=== PATIENT | male | born 1955 | race Caucasian/White ===

== ENCOUNTER 2017-05-20 10:24 | Day surgery (SDC) | payer BC ==
[~2017-05-20 10:24] MED LIST: DIPATR PO; GENT.3OPSA OD; IBUP800; ONDA4ODT; OXYACE5T PO; OXYC5
[2018-02-08] MEDS ORDERED: LOPE2C PO (13:28)
== END 2017-05-20 22:59 | disposition home or self-care (01) ==
LOC: CT 10:24
PROC: 0W9G30Z Drainage of Peritoneal Cavity with Drainage Device, Percutaneous Approach (ICD-10-PCS; principal; 2017-05-20)
DX: C20 Malignant neoplasm of rectum (principal)
CPT/HCPCS: 49406; 72192; 88108

== ENCOUNTER 2017-05-20 10:24 | Day surgery (SDC) | payer SELFPAY ==
[2018-02-08] MEDS ORDERED: LOPE2C PO (13:28)
== END 2017-05-26 22:38 | disposition home or self-care (01) ==
LOC: CT 10:24
PROC: BW2GYZZ Computerized Tomography (CT Scan) of Pelvic Region using Other Contrast (ICD-10-PCS; principal; 2017-05-20)
DX: C20 Malignant neoplasm of rectum (principal)
CPT/HCPCS: 72192

== ENCOUNTER → 2018-03-29 | Outpatient (CLI) | payer OTHER ==
[~2018-03-29] MED LIST changes: +LOPE2C PO
== END | disposition home or self-care (01) ==
LOC: LAB SHORT 17:00 → LAB 17:00 → LAB FUT 03-24 16:50 → EDSTATUS 03-24 16:50
DX: C20 Malignant neoplasm of rectum (principal); Z93.2 Ileostomy status
CPT/HCPCS: 87493

== ENCOUNTER 2018-08-01 08:03 | Day surgery (SDC) | payer OTHER ==
[~2018-08-01] VITALS: Wt 85.7 kg
--- NOTE | 2018-08-01 08:30 | NUR ---
INTO SDS ADMISSION TO UNIT STARTED.
--- NOTE | 2018-08-01 08:56 | NUR ---
08/01/18 0856 Vivienne Olvera History, Chart, Medications and Allergies reviewed before start of procedure. Patient confirms NPO status and agrees with scheduled surgery. PATIENT DETERMINED TO BE ASA APPROPRIATE FOR PROPOFOL SEDATION PRIOR TO START OF PROCEDURE BY DR. SAEZ. 3-LEAD EKG REVIEWED WITH PHYSICIAN PRIOR TO START OF PROCEDURE. MONITOR INTACT WITH CONTINUOUS PULSE OXIMETRY AND INTERMITTENT BP.
--- NOTE | 2018-08-01 10:22 | NUR ---
Discharge instructions reviewed with patient. Patient verbalizes understanding. Copy given to patient to take home. Discharged via wheelchair to private car for ride home.
== END 2018-08-01 10:22 | disposition home or self-care (01) ==
LOC: ORSCMMR 08:03 → ORD 09:00 → ORSCMMR 09:00
PROVIDERS: Internal Medicine Gastroenterology
PROC: 0DBE8ZX Excision of Large Intestine, Via Natural or Artificial Opening Endoscopic, Diagnostic (ICD-10-PCS; principal; 2018-08-01 09:00)
PROC: 3E0H8GC Introduction of Other Therapeutic Substance into Lower GI, Via Natural or Artificial Opening Endoscopic (ICD-10-PCS; principal; 2018-08-01 09:00)
PROC: 0D7E8ZZ Dilation of Large Intestine, Via Natural or Artificial Opening Endoscopic (ICD-10-PCS; principal; 2018-08-01 09:00)
DX: R19.7 Diarrhea, unspecified (principal); Z85.048 Personal history of other malignant neoplasm of rectum, rectosigmoid junction, and anus; K56.699 Other intestinal obstruction unspecified as to partial versus complete obstruction; F17.210 Nicotine dependence, cigarettes, uncomplicated; Z79.899 Other long term (current) drug therapy
CPT/HCPCS: 88305; C1726; J2250; J2704; J3301; J7120

== ENCOUNTER → 2019-02-28 | Outpatient (CLI) | payer OTHER | END | disposition home or self-care (01) | LOC: LAB 11:58 → LAB SHORT 11:58 → LAB FUT 02-29 17:55 → EDSTATUS 02-29 17:55 | DX: C20 Malignant neoplasm of rectum (principal) | CPT/HCPCS: 87493 ==

== ENCOUNTER 2019-05-09 07:59 | Day surgery (SDC) | payer OTHER ==
[~2019-05-09] VITALS: Ht 185.4 cm; Wt 93.6 kg
--- NOTE | 2019-05-09 08:48 | NUR ---
Ambulatory in Day Surgery. Patient states colon prep results clear. History, Chart, Medications and Allergies reviewed before start of procedure. Lungs clear T/O to Auscultation. Patient confirms NPO status and agrees with scheduled surgery. Pre-Op teaching done. Pt verbalizes understanding. Patient States Post-Procedure ride home has been arranged.
--- NOTE | 2019-05-09 10:26 | NUR ---
05/09/19 1026 BHAVANA RALPH History, Chart, Medications and Allergies reviewed before start of procedure.MONITOR INTACT WITH CONTINUOUS PULSE OXIMETRY AND INTERMITTENT BP.3-LEAD EKG REVIEWED WITH PHYSICIAN PRIOR TO START OF PROCEDURE.O2 VIA N/C INTACT THROUGHOUT SEDATION/PROCEDURE. PATIENT DETERMINED TO BE ASA APPROPRIATE FOR PROPOFOL SEDATION PRIOR TO START OF PROCEDURE BY DR. SAEZ.
--- NOTE | 2019-05-09 11:26 | NUR ---
Patient up to Ambulate independently. Gait steady. Discharge instructions reviewed with patient. Patient verbalizes understanding. Copy given to patient to take home. Patient States Post-Procedure ride home has been arranged. Discharged via wheelchair to private car for ride home.
== END 2019-05-09 22:53 | disposition home or self-care (01) ==
LOC: ORSCMMR 07:59 → ORD 09:00 → ORSCMMR 22:53
PROVIDERS: Internal Medicine Gastroenterology
PROC: 3E0H8GC Introduction of Other Therapeutic Substance into Lower GI, Via Natural or Artificial Opening Endoscopic (ICD-10-PCS; principal; 2019-05-09 09:00)
PROC: 0D7N8ZZ Dilation of Sigmoid Colon, Via Natural or Artificial Opening Endoscopic (ICD-10-PCS; principal; 2019-05-09 09:00)
PROC: 0DBP8ZX Excision of Rectum, Via Natural or Artificial Opening Endoscopic, Diagnostic (ICD-10-PCS; principal; 2019-05-09 09:00)
DX: R19.5 Other fecal abnormalities (principal); K62.4 Stenosis of anus and rectum; Z85.048 Personal history of other malignant neoplasm of rectum, rectosigmoid junction, and anus; F17.210 Nicotine dependence, cigarettes, uncomplicated
CPT/HCPCS: 88305; C1726; J2250; J2704; J3301; J7120

== ENCOUNTER 2020-01-07 18:52 | Inpatient (IN) | payer OTHER ==
[~2020-01-07] VITALS: Ht 185.4 cm; Wt 86.5 kg
[~2020-01-07 18:52] MED LIST changes: -AMOCLA500 PO; -HYDMOR2 PO
[2020-01-07] MEDS ORDERED: LOPE2C PO (19:06)
[2020-01-07 19:56] LABS: BASOPHILS ABSOLUTE AUTO 0.07 K/mm3 (0.00-0.23); BASOPHILS PERCENT AUTO 1 % (0-2); EOSINOPHILS ABSOLUTE AUTO 0.08 K/mm3 (0.00-0.68); EOSINOPHILS PERCENT AUTO 1 % (0-6); Hematocrit 47.2 % (37.0-53.0); Hemoglobin 15.6 g/dL (13.5-17.5); IMMATURE GRAN ABSOLUTE AUTO 0.12 K/mm3 (0.00-0.10); IMMATURE GRAN PERCENT AUTO 1 % (0-1); LYMPHOCYTES ABSOLUTE AUTO 1.41 K/mm3 (0.84-5.20); LYMPHOCYTES PERCENT AUTO 11 % (21-46); MONOCYTES ABSOLUTE AUTO 1.17 K/mm3 (0.16-1.47); MONOCYTES PERCENT AUTO 9 % (4-13); Mean Corpuscular HGB Conc 33.1 g/dL (31.5-36.5); Mean Corpuscular Volume 91 fL (80-100); Mean Platelet Volume 9.8 fL (9.1-12.4); NEUTROPHILS ABSOLUTE AUTO 10.42 K/mm3 (1.96-9.15); NEUTROPHILS PERCENT AUTO 79 % (41-73); Platelet Count 338 K/mm3 (150-400); RDW Coefficient Variation 13.4 % (11.7-14.2); RDW Standard Deviation 45.7 fL (35.1-46.3); White Blood Cell Count 13.27 K/mm3 (4.00-11.30)
[2020-01-07 22:42] LABS: Alanine Aminotransfer (ALT/SGP 18 U/L (12-78); Albumin/Globulin Ratio 0.7 (0.8-1.8); Alk Phos 90 U/L (50-136); Anion Gap 9 mmol/L (6-16); Aspartate Aminotrans (AST/SGOT 10 U/L (12-37); Bilirubin, Total 0.4 mg/dL (0.1-1.0); Blood Urea Nitrogen 8 mg/dL (8-24); Bun/Creatinine Ratio 10.3 (12.0-20.0); CO2, Blood 27 mmol/L (21-32); Calcium, Blood 8.8 mg/dL (8.5-10.1); Chloride, Blood 101 mmol/L (98-108); Creatinine, Blood 0.78 mg/dL (0.60-1.20); Globulin, Blood 4.6 g/dL (2.2-4.0); Glomerular Filtration Rate >60 (60-); Glucose, Blood 89 mg/dL (70-99); Potassium, Blood 3.1 mmol/L (3.5-5.5); Sodium, Blood 137 mmol/L (136-145); Total Protein, Blood 7.6 g/dL (6.4-8.2)
[2020-01-07 23:20] LABS: Source, Urine Voided
[2020-01-07 23:24] LABS: Bilirubin, Urine Neg (Neg); Blood, Urine Neg (Neg); Glucose Qualitative, Urine Neg (Neg); Ketones, Urine Neg (Neg); Leukocyte Esterase, Urine Neg (Neg); Nitrite, Urine Neg (Neg); Protein, Urine Neg (Neg); Specific Gravity, Urine 1.005 (1.003-1.022); Urobilinogen, Urine NORM (Normal)
[2020-01-07 23:25] LABS: Appearance, Urine Clear (Clear); Color, Urine Yellow (P-Yellow)
--- NOTE | 2020-01-08 01:30 | NUR ---
0115 PT ADMITTED TO ROOM 356 PER CART FROM ER; PT MOVED PER SELF FROM CART TO BED; ALERT AND ORIENTED X 4; PTS SISTER JORDI AT SIDE AND TOOK ALL PERSONAL BELONGINGS HOME.
--- NOTE | 2020-01-08 04:29 | NUR ---
SHIFT SUMMARY: 64 Y/O MALE RESTED COMFORTABLY ALL SHIFT; C/O RECTAL PAIN RATED 7/10 WITH FENTANYL 50MCG IVP X 1 GIVEN WITH ADEQUATE RELIEF FELT; HAPPY AND COOPERATIVE; NPO FOR SURGICAL CONSULT TODAY; ALERT AND ORIENTED X 4; BED LOW POSITION WITH CALL LIGHT AT SIDE.
[2020-01-08 07:55] LABS: BASOPHILS ABSOLUTE AUTO 0.07 K/mm3 (0.00-0.23); BASOPHILS PERCENT AUTO 1 % (0-2); EOSINOPHILS ABSOLUTE AUTO 0.15 K/mm3 (0.00-0.68); EOSINOPHILS PERCENT AUTO 2 % (0-6); Hematocrit 42.7 % (37.0-53.0); Hemoglobin 13.9 g/dL (13.5-17.5); IMMATURE GRAN ABSOLUTE AUTO 0.07 K/mm3 (0.00-0.10); IMMATURE GRAN PERCENT AUTO 1 % (0-1); LYMPHOCYTES ABSOLUTE AUTO 1.02 K/mm3 (0.84-5.20); LYMPHOCYTES PERCENT AUTO 11 % (21-46); MONOCYTES ABSOLUTE AUTO 0.94 K/mm3 (0.16-1.47); MONOCYTES PERCENT AUTO 10 % (4-13); Mean Corpuscular HGB 29.6 pg (26.0-34.0); Mean Corpuscular HGB Conc 32.6 g/dL (31.5-36.5); Mean Corpuscular Volume 91 fL (80-100); Mean Platelet Volume 9.7 fL (9.1-12.4); NEUTROPHILS PERCENT AUTO 76 % (41-73); Platelet Count 285 K/mm3 (150-400); RDW Coefficient Variation 13.6 % (11.7-14.2); RDW Standard Deviation 45.2 fL (35.1-46.3); White Blood Cell Count 9.45 K/mm3 (4.00-11.30)
[2020-01-08 08:05] LABS: Alanine Aminotransfer (ALT/SGP 14 U/L (12-78); Albumin, Blood 2.5 g/dL (3.4-5.0); Albumin/Globulin Ratio 0.7 (0.8-1.8); Alk Phos 71 U/L (50-136); Anion Gap 6 mmol/L (6-16); Aspartate Aminotrans (AST/SGOT 9 U/L (12-37); Bilirubin, Total 0.3 mg/dL (0.1-1.0); Blood Urea Nitrogen 7 mg/dL (8-24); Bun/Creatinine Ratio 9.3 (12.0-20.0); CO2, Blood 27 mmol/L (21-32); Calcium, Blood 8.2 mg/dL (8.5-10.1); Chloride, Blood 110 mmol/L (98-108); Creatinine, Blood 0.75 mg/dL (0.60-1.20); Globulin, Blood 3.6 g/dL (2.2-4.0); Glomerular Filtration Rate >60 (60-); Glucose, Blood 92 mg/dL (70-99); Potassium, Blood 4.1 mmol/L (3.5-5.5); Sodium, Blood 143 mmol/L (136-145); Total Protein, Blood 6.1 g/dL (6.4-8.2)
[2020-01-08 09:40] LABS: Mean Platelet Volume 10.2 fL (9.1-12.4); Platelet Count 285 K/mm3 (150-400)
[2020-01-08 09:58] LABS: International Normalized Ratio 1.07; Prothrombin Time Results 11.4 Sec (9.7-11.5)
--- NOTE | 2020-01-08 12:47 | NUR ---
CALL PLACED TO HOSPITALIST REGARDING UNCONTROLLED PAIN AT 0920. ORDER FOR OXYCODONE RECIEVED BY PHONE, BUT ORDER NOT PLACED BY THIS RN DUE TO PT ALLERGY TO OXY. AT 0930 CALLED KEN FOR DIET ORDERS CLARIFICATION AND LOREN FOR PAIN MED ORDERS. LOREN AGAIN AT 1008 FOR PAIN MED ORDERS. ORDER FOR NORCO PLACED ONCE VO RECIEVED FROM LOREN. THIS RN MADE MD AWARE OF ALLERGY AND NOTIFIED PHARMACY, OK PER MD FOR NORCO. KEN AT BEDSIDE AT 1120, GAVE ORDER FROM GLENDY ARREOLA, AND ERVIN FOR PT TO EAT. CT WITH DRAIN PLACEMENT TOMORROW EXPLAINED TO PT BY SURGEON. LOREN AT BEDSIDE AT 1140, DISCUSSED POTENTIAL RENAL MASS WITH PT; PT AND OUTPT ONCOLOGIST AWARE, PER PT. WILL CONTINUE TO MONITOR PAIN LEVELS.
--- NOTE | 2020-01-08 16:10 | NUR ---
SBAR REPORT TO NEREYDA SZYMANSKI. FULL DILAUDID ROLFER CARTRIDGE HANDOFF FROM THIS RN TO NESSA DAWN, 30ML HYDROMORPHONE. CALL TO KEN PLACED 1350. NO 4 HOUR LOCKOUT LIMIT ORDER IN PLACE.
--- NOTE | 2020-01-08 16:18 | NUR ---
ASSUMED PT CARE AT 1610. PT RESTING IN BED WITH SISTER AT BEDSIDE CALL LIGHT WITHIN REACH.
--- NOTE | 2020-01-08 17:50 | NUR ---
PT AOX4 AND COOPERATIVE OF CARE. PT HAS HAD A STEADY 9 OUT OF 10 PAIN LEVEL. GEAR SHAPER PUMP HAS JUST BEEN SET UP. THIS SOLDERER AND OFFAL BALER LORI SET PUMP UP PER DR RESENDEZ'S ORDERS. PT RESTING IN BED AT THIS TIME. INDEPENDENT IN ROOM AND CAN CALL APPROPRIATELY. WILL CONTINUE TO MONITOR.
--- NOTE | 2020-01-09 04:58 | NUR ---
SHIFT SUMMARY NO ACUTE CHANGES THIS SHIFT, SLEPT T/O MOST OF THE NIGHT, STATES PAIN PUMP IS MANAGING PAIN "MUCH BETTER" THAN BEFORE. NPO SINCE MIDNIGHT, PT SLEEPING AT THIS TIME, CALL LIGHT IN REACH, WILL CONT TO MONITOR UNTIL REPORT GIVEN TO DAY RN.
[2020-01-09 12:31] LABS: Vancomycin, Trough 8.6 ug/mL (5.0-10.0)
--- NOTE | 2020-01-09 13:40 | NUR ---
Patient is lying in bed and alert. Patient's sister is bedside. Patient tells me about his medical history and the struggle this has been for him. Patient talks about the loss of muscle mass, strength and mobility. Patient shares about how his family and friends and the short term goals he sets for himself help him stay inspired and moving forward. I listen empathically, reinforce helpful attitudes and practices and provide companionship and a calming presence. I will continue to remain available to patient and family.
--- NOTE | 2020-01-09 19:27 | NUR ---
END OF SHIFT SUMMARY: PATIENT OFF UNIT FOR DRAIN PLACEMENT THIS MORNING. PATIENT TOLERATED WELL. POST-PROCEDURE VITALS STABLE. PATIENT REPORTS A DECREASE IN THE PRESSURE HE WAS FEELING IN THE SACRAL AREA. REPORTS INCREASED EASE OF VOIDING. PATIENT REPORTS THAT MAIN SOURCE OF PAIN IS NOW AT THE DRAIN INSERTION SITE (10/21). INSERTION SITE AND STAT LOCK ARE COVERED AND DRESSING IS INTACT. MINIMAL SEROUS DRAINAGE AT INSERTION SITE. DRAINED 80ML OF SEROUS-SANGINOUS FLUID WITH SOME SMALL CLOTS DURING DAY SHIFT. PATIENT CONTINUES TO REQUIRE OIL WELL PUMPER FOR PAIN CONTROL. VERIFIED WITH DR. ROGERS THE 4 HOUR LOCKOUT (4MG). ORDER UPDATED. PATIENT CONTINUES TO BE ALERT AND ORIENTED WITH NO CHANGES TO MENTATION OR RESPIRATORY STATUS. PATIENT STEADY ON FEET. PATIENT DENIED NAUSEA AND HAD A GOOD APPETITE FOR LUNCH AND DINNER. PATIENT DENIED NAUSEA OR GASTRIC UPSET AFTER EATING.
[2020-01-10 04:39] LABS: BASOPHILS ABSOLUTE AUTO 0.06 K/mm3 (0.00-0.23); BASOPHILS PERCENT AUTO 1 % (0-2); EOSINOPHILS ABSOLUTE AUTO 0.34 K/mm3 (0.00-0.68); EOSINOPHILS PERCENT AUTO 5 % (0-6); Hematocrit 39.7 % (37.0-53.0); Hemoglobin 12.9 g/dL (13.5-17.5); IMMATURE GRAN PERCENT AUTO 1 % (0-1); LYMPHOCYTES ABSOLUTE AUTO 1.55 K/mm3 (0.84-5.20); LYMPHOCYTES PERCENT AUTO 22 % (21-46); MONOCYTES ABSOLUTE AUTO 0.58 K/mm3 (0.16-1.47); MONOCYTES PERCENT AUTO 8 % (4-13); Mean Corpuscular HGB 29.6 pg (26.0-34.0); Mean Corpuscular HGB Conc 32.5 g/dL (31.5-36.5); Mean Corpuscular Volume 91 fL (80-100); Mean Platelet Volume 9.5 fL (9.1-12.4); NEUTROPHILS ABSOLUTE AUTO 4.41 K/mm3 (1.96-9.15); NEUTROPHILS PERCENT AUTO 63 % (41-73); Platelet Count 289 K/mm3 (150-400); RDW Coefficient Variation 13.4 % (11.7-14.2); RDW Standard Deviation 45.5 fL (35.1-46.3); Red Blood Cell Count 4.36 M/mm3 (4.30-5.90); White Blood Cell Count 7.04 K/mm3 (4.00-11.30)
--- NOTE | 2020-01-10 06:00 | NUR ---
SHIFT SUMMARY NO ACUTE CHANGES THIS SHIFT. PT STATES HE DIDN'T SLEEP WELL. PT EDUCATED ON HOW TO USE DRAIN AND TO KEEP IT BELOW SURGICAL SITE. PT IS LAYING IN BED WATCHING TV. POSITIONED WITH PILLOWS FOR COMFORT. BED IN LOWERED POSITION WITH CALL LIGHT, ACCOUNTS PAYABLE ADMINISTRATOR PUMP BUTTON, AND PERSONAL ITEMS WITHIN REACH. NO APPARENT NEEDS OR DISTRESS AT THIS TIME, WILL CONTINUE TO MONITOR UNTIL REPORT GIVEN TO DAY RN.
--- NOTE | 2020-01-10 11:15 | NUR ---
Patient tells me about his sleeplessness night, his love for the outdoors and about his belief system. Patient finds God in the beauty and power of nature and believes that God is caring for him now. Patient shares about the stress of waiting for test results and to find out what the plan will be for him medically. I normalize patient's experience and provide therapeutic listening and prayer. Patient responds well and shows signs of reduced stress. I will continue to remain available to patient and family.
[2020-01-10] MEDS ORDERED: AMOCLA500 PO (13:55)
[2020-01-10] MEDS ORDERED: HYDMOR2 PO (13:56)
--- NOTE | 2020-01-10 15:11 | NUR ---
DISCHARGED PT DISCHARGED TO HOME, TRANSPORTED VIA WITH SISTER. IV DCD. PT PAIN MEDICATED PRIOR DISCHARGE. PT HAS TO FU TO DR RESENDEZ TOMORROW IN HIS OFFICE REGARDING TO THE PT WOUND DRAINAGE. PT WAS EDUCATED ON HOW TO CARE FOR HIS DRAINAGE. SUPPLIES WAS PROVIDED WELL. HANDOUTS WAS PROVIDED, AND MEDICATION WAS SENT TO PT PHARMACY AND WRITTEN PRESCIPTION WAS ALSO GIVEN TO THIS PT.
== END 2020-01-10 14:54 | disposition home or self-care (01) | DRG 373 ==
LOC: ER 18:52 → MEDS 01-08 00:13
PROVIDERS: Emergency Medicine; Physician Assistant; Surgery; ADMIT Internal Medicine
PROC: 0W9M30Z Drainage of Male Perineum with Drainage Device, Percutaneous Approach (ICD-10-PCS; principal; 2020-01-09)
DX: K68.19 Other retroperitoneal abscess (principal); Z85.048 Personal history of other malignant neoplasm of rectum, rectosigmoid junction, and anus; E87.6 Hypokalemia; F17.210 Nicotine dependence, cigarettes, uncomplicated
CPT/HCPCS: 36415; 49406; 80053; 80202; 81003; 83605; 85025; 85049; 85610; 85651; 85730; 86141; 87040; 87070; 87075; 87205; 96361; 96374; 99284-25; A9270; A9270-GY; J0295; J1170; J1650; J3010; J3370; J7030; J7050

== ENCOUNTER → 2020-01-07 | Outpatient (CLI) | payer OTHER ==
[~2020-01-07] MED LIST changes: +AMOCLA500 PO; +HYDMOR2 PO
[2020-01-07 14:25] LABS: Anion Gap 7 mmol/L (6-16); Blood Urea Nitrogen 10 mg/dL (8-24); Bun/Creatinine Ratio 13.2 (12.0-20.0); CO2, Blood 29 mmol/L (21-32); Calcium, Blood 8.9 mg/dL (8.5-10.1); Chloride, Blood 104 mmol/L (98-108); Creatinine, Blood 0.76 mg/dL (0.60-1.20); Glomerular Filtration Rate >60 (60-); Glucose, Blood 93 mg/dL (70-99); Potassium, Blood 3.5 mmol/L (3.5-5.5); Sodium, Blood 140 mmol/L (136-145)
== END | disposition home or self-care (01) ==
LOC: LAB 13:59 → LAB SHORT 13:59
PROVIDERS: Internal Medicine
DX: C20 Malignant neoplasm of rectum (principal)
CPT/HCPCS: 80048

== ENCOUNTER → 2020-02-25 | Outpatient (CLI) | payer OTHER, SELFPAY ==
[~2020-02-25] MED LIST changes: +AMOCLA500 PO; +AMOCLA875 PO; +Colace100 MG PO; +HYDMOR2 PO; +MAGCIT300 PO
== END | disposition home or self-care (01) ==
LOC: PLD 13:18 → LAB SHORT 13:18
DX: B35.1 Tinea unguium (principal); L60.2 Onychogryphosis
CPT/HCPCS: 88305; 88312

== ENCOUNTER 2020-03-02 07:29 | Emergency (ER) | payer OTHER ==
[~2020-03-02] VITALS: Ht 185.4 cm; Wt 90.7 kg
[~2020-03-02 07:29] MED LIST changes: -AMOCLA875 PO; -Colace100 MG PO; -MAGCIT300 PO
[2020-03-02 08:16] LABS: BASOPHILS ABSOLUTE AUTO 0.04 K/mm3 (0.00-0.23); BASOPHILS PERCENT AUTO 0 % (0-2); EOSINOPHILS ABSOLUTE AUTO 0.03 K/mm3 (0.00-0.68); EOSINOPHILS PERCENT AUTO 0 % (0-6); Hematocrit 44.6 % (37.0-53.0); Hemoglobin 14.9 g/dL (13.5-17.5); IMMATURE GRAN ABSOLUTE AUTO 0.04 K/mm3 (0.00-0.10); IMMATURE GRAN PERCENT AUTO 0 % (0-1); LYMPHOCYTES ABSOLUTE AUTO 0.88 K/mm3 (0.84-5.20); LYMPHOCYTES PERCENT AUTO 7 % (21-46); MONOCYTES ABSOLUTE AUTO 1.06 K/mm3 (0.16-1.47); MONOCYTES PERCENT AUTO 9 % (4-13); Mean Corpuscular HGB 29.9 pg (26.0-34.0); Mean Corpuscular HGB Conc 33.4 g/dL (31.5-36.5); Mean Corpuscular Volume 90 fL (80-100); NEUTROPHILS ABSOLUTE AUTO 10.03 K/mm3 (1.96-9.15); NEUTROPHILS PERCENT AUTO 83 % (41-73); Platelet Count 219 K/mm3 (150-400); RDW Coefficient Variation 14.6 % (11.7-14.2); RDW Standard Deviation 48.2 fL (35.1-46.3); Red Blood Cell Count 4.98 M/mm3 (4.30-5.90); White Blood Cell Count 12.08 K/mm3 (4.00-11.30)
[2020-03-02 08:22] LABS: Alanine Aminotransfer (ALT/SGP 13 U/L (12-78); Albumin, Blood 3.3 g/dL (3.4-5.0); Albumin/Globulin Ratio 0.8 (0.8-1.8); Alk Phos 82 U/L (50-136); Anion Gap 9 mmol/L (6-16); Aspartate Aminotrans (AST/SGOT 10 U/L (12-37); Bilirubin, Total 0.6 mg/dL (0.1-1.0); Blood Urea Nitrogen 10 mg/dL (8-24); Bun/Creatinine Ratio 14.5 (12.0-20.0); CO2, Blood 22 mmol/L (21-32); Calcium, Blood 9.1 mg/dL (8.5-10.1); Chloride, Blood 105 mmol/L (98-108); Creatinine, Blood 0.69 mg/dL (0.60-1.20); Globulin, Blood 4.1 g/dL (2.2-4.0); Glomerular Filtration Rate >60 (60-); Glucose, Blood 114 mg/dL (70-99); Potassium, Blood 3.5 mmol/L (3.5-5.5); Sodium, Blood 136 mmol/L (136-145); Total Protein, Blood 7.4 g/dL (6.4-8.2)
[2020-03-02 08:48] LABS: Source, Urine Clean Catch
[2020-03-02 08:51] LABS: Appearance, Urine Clear (Clear); Bilirubin, Urine Neg (Neg); Blood, Urine 1+ (Neg); Color, Urine Yellow (P-Yellow); Glucose Qualitative, Urine Neg (Neg); Ketones, Urine Neg (Neg); Leukocyte Esterase, Urine Neg (Neg); Nitrite, Urine Neg (Neg); Protein, Urine 1+ (Neg); Specific Gravity, Urine 1.015 (1.003-1.022); Urobilinogen, Urine NORM (Normal)
[2020-03-02 09:02] LABS: Bacteria Rare /hpf; Mucus Light (0-Heavy); Red Blood Cells, Urine 0-2 /hpf (0-2); Squamous Epithelial Cells Rare /hpf (Few); White Blood Cells, Urine 0-2 /hpf (0-5)
[2020-03-02] MEDS ORDERED: Colace100 MG PO (10:09)
[2020-03-02] MEDS ORDERED: MAGCIT300 PO (10:09)
== END 2020-03-02 11:25 | disposition home or self-care (01) ==
LOC: ER 07:29
PROVIDERS: Physician Assistant
DX: K59.00 Constipation, unspecified (principal); F17.210 Nicotine dependence, cigarettes, uncomplicated
CPT/HCPCS: 74022; 80053; 81001; 85025; 99284-25

== ENCOUNTER 2020-03-08 17:47 | Emergency (ER) | payer OTHER ==
[~2020-03-08] VITALS: Ht 185.4 cm; Wt 88.5 kg
[~2020-03-08 17:47] MED LIST changes: +Colace100 MG PO; +MAGCIT300 PO
[2020-03-08 21:25] LABS: BASOPHILS ABSOLUTE AUTO 0.08 K/mm3 (0.00-0.23); BASOPHILS PERCENT AUTO 1 % (0-2); EOSINOPHILS ABSOLUTE AUTO 0.26 K/mm3 (0.00-0.68); EOSINOPHILS PERCENT AUTO 2 % (0-6); Hematocrit 42.2 % (37.0-53.0); IMMATURE GRAN ABSOLUTE AUTO 0.08 K/mm3 (0.00-0.10); IMMATURE GRAN PERCENT AUTO 1 % (0-1); LYMPHOCYTES ABSOLUTE AUTO 1.93 K/mm3 (0.84-5.20); LYMPHOCYTES PERCENT AUTO 17 % (21-46); MONOCYTES ABSOLUTE AUTO 0.97 K/mm3 (0.16-1.47); MONOCYTES PERCENT AUTO 9 % (4-13); Mean Corpuscular HGB 29.7 pg (26.0-34.0); Mean Corpuscular HGB Conc 33.2 g/dL (31.5-36.5); Mean Corpuscular Volume 90 fL (80-100); Mean Platelet Volume 9.7 fL (9.1-12.4); NEUTROPHILS ABSOLUTE AUTO 7.97 K/mm3 (1.96-9.15); NEUTROPHILS PERCENT AUTO 71 % (41-73); Platelet Count 296 K/mm3 (150-400); RDW Coefficient Variation 14.2 % (11.7-14.2); RDW Standard Deviation 46.8 fL (35.1-46.3); Red Blood Cell Count 4.71 M/mm3 (4.30-5.90); White Blood Cell Count 11.29 K/mm3 (4.00-11.30)
[2020-03-08 21:40] LABS: Anion Gap 4 mmol/L (6-16); Blood Urea Nitrogen 22 mg/dL (8-24); CO2, Blood 30 mmol/L (21-32); Calcium, Blood 8.9 mg/dL (8.5-10.1); Chloride, Blood 107 mmol/L (98-108); Creatinine, Blood 0.92 mg/dL (0.60-1.20); Glomerular Filtration Rate >60 (60-); Glucose, Blood 96 mg/dL (70-99); Potassium, Blood 3.9 mmol/L (3.5-5.5); Sodium, Blood 141 mmol/L (136-145)
[2020-03-08] MEDS ORDERED: AMOCLA875 PO (22:19)
== END 2020-03-08 22:45 | disposition home or self-care (01) ==
LOC: ER 17:47
PROVIDERS: Student in an Organized Health Care Education/Training Program
DX: L02.31 Cutaneous abscess of buttock (principal); F17.210 Nicotine dependence, cigarettes, uncomplicated; Z88.5 Allergy status to narcotic agent
CPT/HCPCS: 36415; 72193; 80048; 85025; 99284-25; Q9967

== ENCOUNTER 2020-12-10 15:48 | Inpatient (IN) | payer OTHER ==
[~2020-12-10] VITALS: Ht 185.4 cm; Wt 87.0 kg
[~2020-12-10 15:48] MED LIST changes: +AMOCLA875 PO
[2020-12-10 16:35] LABS: BASOPHILS ABSOLUTE AUTO 0.05 K/mm3 (0.00-0.23); BASOPHILS PERCENT AUTO 1 % (0-2); EOSINOPHILS PERCENT AUTO 1 % (0-6); Hematocrit 45.6 % (37.0-53.0); Hemoglobin 15.6 g/dL (13.5-17.5); IMMATURE GRAN ABSOLUTE AUTO 0.05 K/mm3 (0.00-0.10); IMMATURE GRAN PERCENT AUTO 1 % (0-1); LYMPHOCYTES ABSOLUTE AUTO 1.12 K/mm3 (0.84-5.20); LYMPHOCYTES PERCENT AUTO 15 % (21-46); MONOCYTES ABSOLUTE AUTO 0.65 K/mm3 (0.16-1.47); MONOCYTES PERCENT AUTO 9 % (4-13); Mean Corpuscular HGB 30.1 pg (26.0-34.0); Mean Corpuscular HGB Conc 34.2 g/dL (31.5-36.5); Mean Corpuscular Volume 88 fL (80-100); Mean Platelet Volume 9.3 fL (9.1-12.4); NEUTROPHILS ABSOLUTE AUTO 5.51 K/mm3 (1.96-9.15); NEUTROPHILS PERCENT AUTO 74 % (41-73); Platelet Count 300 K/mm3 (150-400); RDW Coefficient Variation 13.2 % (11.7-14.2); RDW Standard Deviation 42.7 fL (35.1-46.3); Red Blood Cell Count 5.18 M/mm3 (4.30-5.90); White Blood Cell Count 7.48 K/mm3 (4.00-11.30)
[2020-12-10 17:17] LABS: Albumin, Blood 2.9 g/dL (3.4-5.0); Albumin/Globulin Ratio 0.6 (0.8-1.8); Bilirubin, Total 0.3 mg/dL (0.1-1.0); Calcium, Blood 8.9 mg/dL (8.5-10.1); Creatinine, Blood 1.25 mg/dL (0.60-1.20); Globulin, Blood 4.5 g/dL (2.2-4.0); Potassium, Blood 3.8 mmol/L (3.5-5.5); Total Protein, Blood 7.4 g/dL (6.4-8.2)
[2020-12-10] MEDS ORDERED: NEURONTIN300 MG PO (19:01)
[2020-12-10] MEDS ORDERED: METAMUCIL POWD575 GM PO (19:02)
--- NOTE | 2020-12-10 20:25 | NUR ---
TRANSFER NOTE REPORT FROM ER NURSE. PT TO FLOOR BY REAL AND STANDS TO TRANSFER TO BED. PT ON MAINTENANCE FLUIDS. ORIENTED TO UNIT AND ROOM. CALL LIGHT WITHIN REACH.
[2020-12-10 20:51] LABS: SARS-Cov-2 (COVID-19) PCR, MMC NEGATIVE (NEGATIVE)
[2020-12-11 04:52] LABS: BASOPHILS ABSOLUTE AUTO 0.05 K/mm3 (0.00-0.23); BASOPHILS PERCENT AUTO 1 % (0-2); EOSINOPHILS ABSOLUTE AUTO 0.21 K/mm3 (0.00-0.68); EOSINOPHILS PERCENT AUTO 3 % (0-6); Hematocrit 40.3 % (37.0-53.0); Hemoglobin 13.4 g/dL (13.5-17.5); IMMATURE GRAN ABSOLUTE AUTO 0.04 K/mm3 (0.00-0.10); IMMATURE GRAN PERCENT AUTO 1 % (0-1); LYMPHOCYTES ABSOLUTE AUTO 1.12 K/mm3 (0.84-5.20); LYMPHOCYTES PERCENT AUTO 15 % (21-46); MONOCYTES ABSOLUTE AUTO 0.69 K/mm3 (0.16-1.47); MONOCYTES PERCENT AUTO 9 % (4-13); Mean Corpuscular HGB 30.4 pg (26.0-34.0); Mean Corpuscular HGB Conc 33.3 g/dL (31.5-36.5); Mean Corpuscular Volume 91 fL (80-100); Mean Platelet Volume 9.3 fL (9.1-12.4); NEUTROPHILS ABSOLUTE AUTO 5.26 K/mm3 (1.96-9.15); NEUTROPHILS PERCENT AUTO 71 % (41-73); Platelet Count 236 K/mm3 (150-400); RDW Coefficient Variation 13.2 % (11.7-14.2); RDW Standard Deviation 45.1 fL (35.1-46.3); Red Blood Cell Count 4.41 M/mm3 (4.30-5.90); White Blood Cell Count 7.37 K/mm3 (4.00-11.30)
[2020-12-11 05:06] LABS: International Normalized Ratio 1.02; Prothrombin Time Results 10.7 Sec (9.7-11.5)
[2020-12-11 05:22] LABS: Albumin, Blood 2.2 g/dL (3.4-5.0); Albumin/Globulin Ratio 0.6 (0.8-1.8); Bilirubin, Total 0.2 mg/dL (0.1-1.0); Bun/Creatinine Ratio 11.2 (12.0-20.0); Calcium, Blood 8.1 mg/dL (8.5-10.1); Creatinine, Blood 1.34 mg/dL (0.60-1.20); Globulin, Blood 3.5 g/dL (2.2-4.0); Potassium, Blood 3.9 mmol/L (3.5-5.5); Total Protein, Blood 5.7 g/dL (6.4-8.2)
--- NOTE | 2020-12-11 07:34 | NUR ---
COREMAKER SUMMARY ADMITTED FOR PELVIC ABSCESS. PT IS A FULL CODE. PT MEDICATED FOR PAIN X2 WITH SOME IMPROVEMENT. PT RECEIVING IV ABX PRIOR TO DRAINAGE OF THE ABSCESS. MAINTENANCE FLUIDS RUNNING. NO OTHER CONCERNS THIS SHIFT.
--- NOTE | 2020-12-11 18:41 | NUR ---
PT IS AO ,PT HAVE A LEFT LOWER BACK FATMATA-CLOSE SUCTION DRAINAGE SYSTEMS (URESIL),PT MEDICATED PER EMAR.PT IN BED, CALL LIGHT WITHIN REACH WILL CONTINUE TO MONITOR.
--- NOTE | 2020-12-12 04:26 | NUR ---
DATABASES SOFTWARE CONSULTANT SUMMARY ADMITTED FOR PELVIC ABSCESS. PT IS FULL CODE. DRAIN IN PLACE TO THE LEFT FLANK DRAINING RED AND WHITE THICK FLUID. NO OTHER SIGNS OF INFECTION TO THE AREA. PT MEDICATED FOR PAIN X1 AND INSOMNIA X1. NO OTHER CONCERNS THIS SHIFT.
[2020-12-12 05:14] LABS: BASOPHILS ABSOLUTE AUTO 0.06 K/mm3 (0.00-0.23); BASOPHILS PERCENT AUTO 1 % (0-2); EOSINOPHILS ABSOLUTE AUTO 0.22 K/mm3 (0.00-0.68); EOSINOPHILS PERCENT AUTO 4 % (0-6); Hematocrit 40.9 % (37.0-53.0); Hemoglobin 13.6 g/dL (13.5-17.5); IMMATURE GRAN ABSOLUTE AUTO 0.05 K/mm3 (0.00-0.10); IMMATURE GRAN PERCENT AUTO 1 % (0-1); LYMPHOCYTES ABSOLUTE AUTO 1.52 K/mm3 (0.84-5.20); LYMPHOCYTES PERCENT AUTO 25 % (21-46); MONOCYTES ABSOLUTE AUTO 0.54 K/mm3 (0.16-1.47); MONOCYTES PERCENT AUTO 9 % (4-13); Mean Corpuscular HGB 30.2 pg (26.0-34.0); Mean Corpuscular HGB Conc 33.3 g/dL (31.5-36.5); Mean Corpuscular Volume 91 fL (80-100); Mean Platelet Volume 9.5 fL (9.1-12.4); NEUTROPHILS ABSOLUTE AUTO 3.81 K/mm3 (1.96-9.15); NEUTROPHILS PERCENT AUTO 62 % (41-73); Platelet Count 245 K/mm3 (150-400); RDW Coefficient Variation 13.2 % (11.7-14.2); RDW Standard Deviation 43.6 fL (35.1-46.3); Red Blood Cell Count 4.51 M/mm3 (4.30-5.90)
[2020-12-12 05:52] LABS: Bun/Creatinine Ratio 9.5 (12.0-20.0); Calcium, Blood 8.3 mg/dL (8.5-10.1); Creatinine, Blood 1.48 mg/dL (0.60-1.20); Potassium, Blood 3.8 mmol/L (3.5-5.5)
--- NOTE | 2020-12-12 13:09 | NUR ---
LATE ENTRY COPIED FROM [facility] EMR NOTES 12/11/20 ADMIT: 12/10/20 DISCHARGE: TBD DX: Pelvic abscess CC: Anthony ColemanRESIDENCE: HomeNext of Kin/Contacts: Jeannie German, Family Member, Omar Eaton, Family Member, PRIOR TO ADMIT DME: None CCM: None C/Hospice: [facility] 2018 Update 12/11/20: Per chart review with Dr. Chan, pt. not yet appropriate for discharge. Dr. Chan attempted to contact [facility] for consult without being successfully transferred to physician. I will reach out to [facility] and [facility] Dr. Dianna Aparicio tomorrow to determine what patients outpatient options might be. Anticipated needs at time of discharge to include: specialist referral with scheduled visit, hospital F/U visit with PCP within 5 - 7 days.
--- NOTE | 2020-12-12 13:10 | NUR ---
Update 12/12/20: Discussed patient's case and need for outpatient management with clinical staff at [facility] as it appears last drain was placed by Dr. Rock. No specialist available this week to review. Per staff, with Dr. Rock no longer working at [facility], they will have to place note to other physicians for review next week. At this time it seems that outpatient management by organizational development specialist at [facility] Dr. Dianna Aparicio would likely be patient's best option. Contacted Dr. Dianna Aparicio's clinical staff and reviewed case and need for outpatient management. Faxed H&P and additional relevant chart notes to Dr. Dianna Aparicio for review. Anticipate phone call this afternoon with recommendation for F/U. Updated Dr. Lopez.
--- NOTE | 2020-12-12 15:34 | NUR ---
PT IS AO,PT PELVIC SUCTION DEVICE IS INTACT AND DRAINING,PT MEDICATED FOR PAIN THIS PM,PT IS INDEPENDENT,PT HAS NO ACUTE CHANGES T/O SHIFT,PT RESTING IN BED WILL CONTINUE TO MONITOR.
--- NOTE | 2020-12-12 15:40 | NUR ---
Attempted to reachout to Dr. Dianna Aparicio staff for status check on review of patient's case. Left message for staff to return call with updates. Provided Dr. Lopez's number for Dr. Dianna Aparicio to call if questions. Confirmed fax has been received.
--- NOTE | 2020-12-13 02:52 | NUR ---
PHONE CALL TO DR. PEREZ\ PT TAKES GABAPENTIN 300MG TABLET PO BEDTIME AT HOME, MED IS RECONCILED WITH AT HOME MED LIST. PT NOW OF PAIN AND TINGLING TO HIS HANDS. DR. PEREZ WITH ORDERS TO START GABAPENTIN 300MG PO BEDTIME. ORDERS UPDATED.
--- NOTE | 2020-12-13 04:36 | NUR ---
SHIFT SUMMARY PT C/O PAIN TO PELVIC ABSCESS, WHICH WAS RELIEVED BY PRN PAIN MEDICATION SEE EMAR. ALSO C/O NUMBNESS AND TINGLING TO HIS HANDS, HOME MEDICATION ADDED TO EMAR GABAPENTIN 300MG PO BEDTIME. PT'S URESIL DRAIN IN PLACE TO RIGHT PELVIC ABSCESS, DRAINED 75ML OF SANGUINOUS DRAINAGE. DRESSING IN PLACE IS C/D/I. ROOM AIR, INDEPENDENT WITH URINAL. BED IN LOWEST POSITION, CALL LIGHT WITHIN REACH.
[2020-12-13] MEDS ORDERED: NICO21TP TOP (12:37)
[2020-12-13] MEDS ORDERED: CIPR750 PO (12:38)
[2020-12-13] MEDS ORDERED: TRAZ50 PO (12:42)
--- NOTE | 2020-12-13 14:46 | NUR ---
PT IS AO,PT HAD A LITTLE DISCOMFORT, MEDICATED PER EMAR, PT HAS NO ACUTE CHANGES,ASSESSMENT REMAINS UNCHANGED.PT DISCHARGE HOME WITH THE DRANING SUCTION INTACT, AND WITH ALL BELONGINGS.
== END 2020-12-13 14:44 | disposition home or self-care (01) | DRG 394 ==
LOC: ER 15:48 → MEDS 18:37 → SURS 18:37 → MEDS 20:20
PROVIDERS: Emergency Medicine; Family Medicine; Physician Assistant; ADMIT Family Medicine
PROC: 0D9P3ZZ Drainage of Rectum, Percutaneous Approach (ICD-10-PCS; principal; 2020-12-11)
DX: K61.0 Anal abscess (principal); N17.9 Acute kidney failure, unspecified; N18.30 Chronic kidney disease, stage 3 unspecified; Z85.038 Personal history of other malignant neoplasm of large intestine; F17.210 Nicotine dependence, cigarettes, uncomplicated; G62.9 Polyneuropathy, unspecified; Z90.49 Acquired absence of other specified parts of digestive tract; G47.00 Insomnia, unspecified; Z88.6 Allergy status to analgesic agent; B96.20 Unspecified Escherichia coli [E. coli] as the cause of diseases classified elsewhere
CPT/HCPCS: 36415; 49406; 80048; 80053; 83605; 84145; 85025; 85610; 87070; 87075; 87076; 87077; 87185; 87186; 87205; 89051; 96365; 96375; 99284-25; A9270; J1170; J1644; J1650; J2405; J2543; J3010; J7030; U0004

== ENCOUNTER 2021-01-03 20:13 | Emergency (ER) | payer OTHER ==
[~2021-01-03] VITALS: Ht 185.4 cm; Wt 87.1 kg
[~2021-01-03 20:13] MED LIST changes: +CIPR750 PO; +METAMUCIL POWD575 GM PO; +NEURONTIN300 MG PO; +NICO21TP TOP; +TRAZ50 PO
== END 2021-01-03 22:48 | disposition home or self-care (01) ==
LOC: ER 20:13
DX: Z48.03 Encounter for change or removal of drains (principal); N18.30 Chronic kidney disease, stage 3 unspecified; G62.9 Polyneuropathy, unspecified; M19.90 Unspecified osteoarthritis, unspecified site; F17.210 Nicotine dependence, cigarettes, uncomplicated; Z88.6 Allergy status to analgesic agent; Z79.899 Other long term (current) drug therapy
CPT/HCPCS: 99282

== ENCOUNTER → 2022-04-02 | Outpatient (CLI) | payer OTHER | END | disposition home or self-care (01) | LOC: LAB SHORT 12:54 | DX: C20 Malignant neoplasm of rectum (principal); N40.1 Benign prostatic hyperplasia with lower urinary tract symptoms; R35.1 Nocturia; R35.0 Frequency of micturition | CPT/HCPCS: 87086 ==

== ENCOUNTER 2023-10-28 12:00 | Day surgery (SDC) | payer OTHER ==
[~2023-10-28] VITALS: Ht 188 cm; Wt 101.7 kg
[~2023-10-28 12:00] MED LIST changes: +Lactated Ringer's 1,000 ML IV ONE; +Lidocaine HCl/Pf 1% 5 ML VIAL ONE; +Ropivacaine 0.5% HCL/PF 5 MG/ML 30ML Vial ONE
[2023-10-28] MEDS ORDERED: propofoL 20 ML IV ONE ×2 (12:06→13:13)
[2023-10-28] MEDS ORDERED: FentaNYL Citrate 50 MCG/ML 2 ML Injection ONE (12:06)
[2023-10-28] MEDS ORDERED: Ondansetron HCl 2 MG / ML 2ML Vial ONE (12:09)
[2023-10-28] MEDS ORDERED: Dexamethasone Sod Phos 10 MG/ML 1ML VIAL ONE (12:09)
[2023-10-28] MEDS ORDERED: Ketorolac Tromethamine 30mg Vial ONE (12:09)
[2023-10-28] MEDS ORDERED: Lactated Ringer's 1,000 ML IV ONE (12:37)
[2023-10-28] MEDS ORDERED: Cialis10 MG (12:39)
[2023-10-28] MEDS ORDERED: CeFAZolin Sodium 2,000 MG VIAL ONE (12:47)
[2023-10-28] MEDS ORDERED: NS 50 ML IV ONE (12:48)
[2023-10-28] MEDS ORDERED: ePHEDrine Sulfate 50 MG/ML 1ML Injection ONE (13:18)
[2023-10-28 14:30] VITALS: BP 117/89
--- NOTE | 2023-10-28 15:56 | NUR ---
10/28/23 1556 Narendra Miramontes PT MAINTAINED O2 93-100% ON RA IN SDU WITH BREIF DROPS LOW 89%. PT WAS ABLE TO QUICKLY RETURN O2 >93% SPONTANEOUSLY. HE DENIED SOB, DIZZINESS, AND OTHER RESPIRATORY SYMPTOMS. NONE WERE OBSERVED. DR. EMERY CONSULTED AND APPROVED D/C WITH INCENTIVE SPIROMETER. PT GIVEN INCENTIVE SPIROMETER AND INSTRUCTED IN ITS USE. PT AWAKE, ALERT, AND RELAXED UPON D/C. HE DENIED PAIN/NAUSEA AND EXPRESSED READINESS TO RETURN HOME.
== END 2023-10-28 15:45 | disposition home or self-care (01) ==
LOC: ORSCSDS 12:00
PROVIDERS: Orthopaedic Surgery
PROC: 0JBH0ZZ Excision of Left Lower Arm Subcutaneous Tissue and Fascia, Open Approach (ICD-10-PCS; principal; 2023-10-28 13:00)
DX: D18.01 Hemangioma of skin and subcutaneous tissue (principal); Z85.038 Personal history of other malignant neoplasm of large intestine; Z87.891 Personal history of nicotine dependence; Z79.899 Other long term (current) drug therapy
CPT/HCPCS: 88305; J0690; J1100; J1885; J2001; J2405; J2704; J2795; J3010; J7120

== ENCOUNTER → 2024-10-03 | Outpatient (CLI) | payer OTHER ==
[~2024-10-03] MED LIST changes: +Cialis10 MG; -Lactated Ringer's 1,000 ML IV ONE; -Lidocaine HCl/Pf 1% 5 ML VIAL ONE; -Ropivacaine 0.5% HCL/PF 5 MG/ML 30ML Vial ONE
[2024-10-03 13:41] LABS: Campylobacter Sp Not Detected (NOT DETECT)
[2024-10-03 13:42] LABS: E. Coli O157 Not Detected (NOT DETECT); Enteroaggregative E. coli-EAEC Not Detected (NOT DETECT); Enteropathogenic E. coli-EPEC Not Detected (NOT DETECT); Enterotoxigenic E. coli-ETEC Not Detected (NOT DETECT); Salmonella Sp Not Detected (NOT DETECT); Shiga Toxin-prod E. coli-STEC Not Detected (NOT DETECT); Shigella/Enteroin E. coli-EIEC Not Detected (NOT DETECT); Vibrio Sp Not Detected (NOT DETECT)
== END ==
LOC: LAB 09:34 → LAB SHORT 09:34
PROVIDERS: Physician Assistant Medical
DX: Z85.048 Personal history of other malignant neoplasm of rectum, rectosigmoid junction, and anus (principal); Z85.030 Personal history of malignant carcinoid tumor of large intestine
CPT/HCPCS: 87507